=== PATIENT | male | born 1980 | race Caucasian/White ===

== ENCOUNTER 2017-11-28 07:13 | Emergency (ER) | payer OTHER ==
[2017-11-28 07:22] VITALS: BP 142/95
[2017-11-28] MEDS ORDERED: FIORICET PO ONE (12:10)
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
--- NOTE | 2017-11-28 14:24 | Cat Scan Report ---
CT scan of head without IV contrast: History: Headache. Findings: Ventricles are normal in size and midline in location. Moderate volume loss. No evidence of acute ischemic, hemorrhage or mass. No extra-axial fluid collection. Normal brainstem and cerebellum. Normal visualized sinuses and mastoid air cells. Impression: No acute intracranial abnormality. Moderate volume loss.
== END 2017-11-28 14:42 | disposition home or self-care (01) ==
LOC: ED 07:13
DX: G44.209 Tension-type headache, unspecified, not intractable (principal)
CPT/HCPCS: 70450; 99283